=== PATIENT | male | born 1980 | race Caucasian/White ===

== ENCOUNTER 2021-10-29 08:27 | Emergency (ER) | payer SELFPAY ==
[2021-10-29] MEDS ORDERED: SODIUM CHLORIDE 0.9% 1000 ML 1,000 ML IV ONE ×2 (09:02→12:50)
--- NOTE | 2021-10-29 09:05 | Emergency Department Report ---
<STVEENSTANLEYSAVAGE Guerra - Last Filed: 10/29/21 10:33> ED General Adult HPI - General Chief complaint: Wound/Laceration Stated complaint: l toe and foot pain Time Seen by Provider: 10/29/21 09:00 - Related Data Home Medications Medication Instructions Recorded Confirmed Last Taken Bactrim DS TAB 1 tab PO BID 08/21/15 08/21/15 Unknown Previous Rx's Medication Instructions Recorded Last Taken Type carvediloL [Coreg] 6.25 mg PO BID #60 tablet 04/04/15 Unknown Rx lisinopriL [Zestril TAB] 20 mg PO QDAY #30 tablet 04/04/15 Unknown Rx Apixaban [Eliquis] 5 mg PO BID #74 tablet 06/03/15 Unknown Rx Clindamycin [Clindamycin CAP] 300 mg PO Q8H #30 cap 10/29/21 Unknown Rx metFORMIN [Glucophage] 500 mg PO BIDDIAB #60 tablet 10/29/21 Unknown Rx Allergies Allergy/AdvReac Type Severity Reaction Status Date / Time levofloxacin [From Levaquin] Allergy Rash Verified 06/03/15 04:48 Penicillins Allergy Rash Verified 06/03/15 04:48 Vancomycin Allergy Rash Uncoded 06/03/15 04:48 ED Past Medical Hx - Medications Home Medications: Home Medications Medication Instructions Recorded Confirmed Last Taken Type carvediloL [Coreg] 6.25 mg PO BID #60 tablet 04/04/15 08/15/15 Unknown Rx lisinopriL [Zestril TAB] 20 mg PO QDAY #30 tablet 04/04/15 08/15/15 Unknown Rx Apixaban [Eliquis] 5 mg PO BID #74 tablet 06/03/15 08/15/15 Unknown Rx Bactrim DS TAB 1 tab PO BID 08/21/15 08/21/15 Unknown History Clindamycin [Clindamycin CAP] 300 mg PO Q8H #30 cap 10/29/21 Unknown Rx metFORMIN [Glucophage] 500 mg PO BIDDIAB #60 tablet 10/29/21 Unknown Rx ED Course - Reevaluation(s) Reevaluation #1: 10/29/21 10:33 I examined this patient with the Mid Level and noticed the 2nd toe cuticle infection with accompany tracking cellulitis to his lower leg and thigh with warmth and blanchable erythema. Will get patient started with 1g Rocephin IVPB x 1-- and incised the cuticle to drain the swelling. ED Disposition Clinical Impression: Infected cuticle, Cellulitis of second toe, left, Cellulitis of left lower leg, Paronychia of toe of left foot, Hyperglycemia Diabetes Qualifiers: Diabetes mellitus type: other specified (including KEDAR) Diabetes mellitus complication status: with skin complications Disposition: HOME / SELF CARE / HOMELESS Condition: Stable Instructions: Cellulitis, Adult, [id number], Paronychia, [id number], Diabetes Mellitus Type 2 in Adults (ED) Additional Instructions: TAKE MEDS ORDERED TODAY STAY WELL HYDRATED WITH WATER MOTRIN OR TYLENOL FOR PAIN FOLLOW UP WITH PCP SARAH YOU HAVE DIABETES AND A FOOT WOUND DIABETIC DIET AVOID ALCOHOL Prescriptions: Clindamycin [Clindamycin CAP] 300 mg PO Q8H #30 cap metFORMIN [Glucophage] 500 mg PO BIDDIAB #60 tablet Referrals: CHASTITY BAUTISTA MD [Primary Care Provider] - 3-5 Days Forms: Work/School Release Form(ED) <LARRY CASTILLO - Last Filed: 10/29/21 15:44> ED General Adult HPI - General PUI?: No Source: patient Mode of arrival: Ambulatory Limitations: No Limitations - History of Present Illness Initial comments: Patient is a 41-year-old obese male that comes to the emergency room with left second toe pain and swelling with a red streak up his leg, anterior tib-fib pain, and pain radiating up into his left thigh. Patient reports 10 out of 10 pain. He denies fever or chills. Denies chest pain or shortness of breath. Patient is slow to move reporting difficulty ambulating on his leg. Vital Signs 10/29/21 08:45 Temperature 97.8 F Pulse Rate 91 H Respiratory 14 Rate Blood Pressure 111/71 O2 Sat by Pulse 97 Oximetry Denies any injury or trauma. Denies any prior medical history other than abdominal surgery. However, review of the EMR indicates other. See EMR. EMR indicates that the patient has been on antihypertensives and Metformin in the past. Screening orders have been placed including antibiotics. 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 Absent: respiratory distress - Cardiovascular Cardiovascular Exam: Present: regular rate, normal rhythm. Absent: systolic murmur, diastolic murmur, rubs, gallop - GI/Abdominal GI/Abdominal exam: Present: soft, normal bowel sounds - Rectal Rectal exam: Present: deferred - Extremities Exam Extremities exam: Present: normal inspection - Back Exam Back exam: Present: normal inspection - Neurological Exam Neurological exam: Present: alert, oriented X3 - Psychiatric Psychiatric exam: Present: normal affect, normal mood - Skin Skin exam: Present: warm, dry, intact, normal color. Absent: rash ED Course Vital Signs 10/29/21 10/29/21 08:45 13:43 Temperature 97.8 F Pulse Rate 91 H 86 Respiratory 14 16 Rate Blood Pressure 111/71 Blood Pressure 118/76 [Left] O2 Sat by Pulse 97 97 Oximetry - Reevaluation(s) Reevaluation #2: 10/29/21 15:41 EMT/DISCHARGE STAFF asked to provide diabetic education to pt and ED Medical Decision Making - Lab Data Result diagrams: 10/29/21 09:15 10/29/21 09:15 - Radiology Data Radiology results: report reviewed, image reviewed NO DVT - Medical Decision Making Vital Signs 10/29/21 08:45 Temperature 97.8 F Pulse Rate 91 H Respiratory 14 Rate Blood Pressure 111/71 O2 Sat by Pulse 97 Oximetry Labs 10/29/21 10/29/21 10/29/21 09:15 09:15 09:15 WBC 5.1 RBC 4.98 Hgb 14.4 Hct 44.8 MCV 90 MCH 29 MCHC 32 RDW 13.8 Plt Count 145 Lymph % (Auto) 25.9 [place] % (Auto) 11.4 H Eos % (Auto) 0.4 Baso % (Auto) 0.5 Lymph # (Auto) 1.3 [place] # (Auto) 0.6 Eos # (Auto) 0.0 Baso # (Auto) 0.0 Seg Neutrophils % 61.8 Seg Neutrophils # 3.1 Sodium 135 L Potassium 4.1 Chloride 101.5 Carbon Dioxide 21 L Anion Gap 17 BUN 13 Creatinine 0.5 L Estimated GFR > 60 BUN/Creatinine Ratio 26 Glucose 375 H Lactic Acid 1.20 Calcium 8.1 L Total Bilirubin 0.50 AST 24 ALT 45 Alkaline Phosphatase 78 Total Protein 6.4 Albumin 3.2 L Albumin/Globulin Ratio 1.0 Vital Signs 10/29/21 10/29/21 08:45 13:43 Temperature 97.8 F Pulse Rate 91 H 86 Respiratory 14 16 Rate Blood Pressure 111/71 Blood Pressure 118/76 [Left] O2 Sat by Pulse 97 97 Oximetry labs noted lactic normal WBC normal wound care given cefazolin given IV NS x 2 L; insulin 5U IV and then 5U SQ- see orders/admit time Blood glucose downtrending pt denies having ever been told he had dm/htn US neg for DVT I had a long discussion with the patient about his wound care/diabetic wound as well as his diabetes. He states that no one has ever told him he is diabetic before. I told him that this infection could cost him his limb if he does not follow-up as instructed. He states that he will. I have sent him home on antibiotics, given him wound care as well as medications for diabetes. He has been provided written material. Technologies Division Chair was used for my discussions. I have asked the basic EMT that is discharging to provide additional information to patient and . She states that she will. On discharge patient vital signs are normal he has no fever he is taking p.o. and is in no acute distress. Patient discharged home with discharge plan of care including diet, activities, medications and follow-up. He verbalizes understanding of plan of care - Differential Diagnosis ro dvt/cellultis Critical care attestation.: If time is entered above; I have spent that time in minutes in the direct care of this critically ill patient, excluding procedure time. ED Disposition Is pt being admited?: No Does the pt Need Aspirin: No Time of Disposition: 15:03
[2021-10-29 10:43] LABS: Basophils % (Auto) 0.5 % (0.0-1.8); Eosinophils % (Auto) 0.4 % (0.0-4.3); Hematocrit 44.8 % (35.5-45.6); Hemoglobin 14.4 gm/dl (11.8-15.2); Lymphocytes # (Auto) 1.3 K/mm3 (1.2-5.4); Lymphocytes % (Auto) 25.9 % (13.4-35.0); Mean Corpuscular HGB Conc 32 % (32-34); Mean Corpuscular Volume 90 fl (84-94); Monocytes # (Auto) 0.6 K/mm3 (0.0-0.8); Monocytes % (Auto) 11.4 % (0.0-7.3); Platelet Count 145 K/mm3 (140-440); Red Blood Count 4.98 M/mm3 (3.65-5.03); Red Cell Distribution Width 13.8 % (13.2-15.2)
[2021-10-29 11:19] LABS: Alanine Aminotransferase 45 units/L (7-56); Albumin 3.2 g/dL (3.9-5); Blood Urea Nitrogen 13 mg/dL (9-20); Calcium 8.1 mg/dL (8.4-10.2); Hemolysis Index 12
[2021-10-29 11:23] LABS: BUN/Creatinine Ratio 26
[2021-10-29] MEDS ORDERED: INSULIN REGULAR, HUMAN 100 UNITS/1 ML IV ONE (11:40)
--- NOTE | 2021-10-29 11:52 | Vascular Lab Report ---
DUPLEX DOPPLER LOWER EXTREMITY VEINS, LEFT INDICATION / CLINICAL INFORMATION: leg pain. TECHNIQUE: Duplex doppler imaging was performed through the veins of the left lower extremity using v enous compression and other maneuvers. COMPARISON: None available. FINDINGS: LEFT COMMON FEMORAL VEIN: Negative. LEFT FEMORAL VEIN: Negative. LEFT POPLITEAL VEIN: Negative. LEFT CALF VEINS: Negative. ADDITIONAL FINDINGS: None. IMPRESSION: 1. No sonographic evidence for DVT in the left lower extremity. Signer Name: Mitesh Thomas MD Signed: 10/29/2021 11:42 AM Workstation Name: [id number]
[2021-10-29] MEDS ORDERED: HYDROcodone/ACETAMINOPHEN 5-325 MG TAB PO ONE (12:28)
[2021-10-29] MEDS ORDERED: SODIUM CHLORIDE 0.9% IRR 500 ML BOTTLE IR SCH (12:28)
[2021-10-29] MEDS ORDERED: INSULIN REGULAR, HUMAN 100 UNITS/1 ML SUB-Q ONE (13:23)
[2021-10-29 13:47] VITALS: BP 118/76
== END 2021-10-29 15:44 | disposition home or self-care (01) ==
LOC: ED 08:27
DX: L03.116 Cellulitis of left lower limb (principal); E11.65 Type 2 diabetes mellitus with hyperglycemia; Z88.0 Allergy status to penicillin; I10 Essential (primary) hypertension
CPT/HCPCS: 36415; 80053; 82140; 82962; 85025; 87040; 93971; 96365; 96366; 96372; 96375; 99284; J0690; J7030; Q0162; Q9967; J1815